=== PATIENT | female | born 1940 | race Caucasian/White ===

== ENCOUNTER 2016-09-11 09:36 | Emergency (ER) | payer MEDICARE ==
[2016-09-11 09:59] VITALS: BP 132/66
--- NOTE | 2016-09-11 10:10 | UC ---
Ear Complaint HPI - HPI Summary HPI Summary: left ear fullness x 2 day no ear pain , no change in hearing no cold symptoms - History of Current Complaint Chief Complaint: UCEar Stated Complaint: EAR FULLNESS Time Seen by Provider: 09/11/16 09:56 Hx Obtained From: Patient Onset/Duration: Gradual Onset, Lasting Days - 2, Still Present Severity Initially: Moderate Severity Currently: Moderate Aggravating Factors: Nothing Alleviating Factors: Nothing Associated Signs/Symptoms: Negative: Discharge, Hearing Loss, Foreign Body Sensation, Trauma to Ear, Swelling @, URI Symptoms - Allergies/Home Medications Allergies/Adverse Reactions: Allergies Allergy/AdvReac Type Severity Reaction Status Date / Time Penicillins Allergy Unknown Unknown Verified 09/11/16 09:59 Reaction Details Codeine AdvReac See Comment Verified 09/11/16 10:00 Home Medications: Home Medications Albuterol HFA INHALER* [Ventolin HFA Inhaler*] 2 puff INH Q4H 09/11/16 [History Confirmed 09/11/16] Aspirin TAB* [Aspirin 325 MG TAB*] 325 mg PO DAILY 09/11/16 [History Confirmed 09/11/16] Atorvastatin* [Lipitor*] 80 mg PO 1700 09/11/16 [History Confirmed 09/11/16] Budesonide CAP(NF) 3 mg PO TID 09/11/16 [History Confirmed 09/11/16] Diltiazem HCl [Diltiazem HCl ER] 240 mg PO 09/11/16 [History] Esomeprazole Magnesium [Nexium 24Hr] 20 mg PO 09/11/16 [History] Ezetimibe TAB* [Zetia TAB*] 09/11/16 [History] Fexofenadine HCl [Allergy 24-Hr] 180 mg PO 09/11/16 [History] Lactobacillus [Probiotic] 1 cap PO 09/11/16 [History] Levothyroxine TAB* [Synthroid TAB*] 75 mcg PO 0800 09/11/16 [History Confirmed 09/11/16] Losartan Potassium [Cozaar] 50 mg PO 09/11/16 [History] Multiple Vitamin [Multi Vitamin] 1 tab PO 09/11/16 [History Confirmed 09/11/16] Torsemide [Demadex 10 MG] 10 mg PO DAILY 09/11/16 [History Confirmed 09/11/16] PMH/Surg Hx/FS Hx/Imm Hx Cancer History: Lung Cancer - Surgical History Surgical History: Yes Surgery Procedure, Year, and Place: gallbladder, lower back, achillies tendon repair - Family History Known Family History: Positive: Hypertension - Social History Alcohol Use: Weekly Substance Use Type: None Smoking Status (MU): Former Smoker Length of Time of Smoking/Using Tobacco: "a long time" Have You Smoked in the Last Year: No When Did the Patient Quit Smoking/Using Tobacco: 1997 Review of Systems Constitutional: Negative Skin: Negative Eyes: Negative ENT: Ear Ache Respiratory: Negative All Other Systems Reviewed And Are Negative: Yes Physical Exam Triage Information Reviewed: Yes Appearance: Well-Appearing, No Pain Distress, Well-Nourished Vital Signs: Initial Vital Signs Temp 98 F 09/11/16 09:48 Pulse 81 09/11/16 09:48 Resp 16 09/11/16 09:48 BP 132/66 09/11/16 09:48 Pulse Ox 95 09/11/16 09:48 Vital Signs Reviewed: Yes Eye Exam: Normal Eyes: Positive: Conjunctiva Clear ENT: Positive: Normal ENT inspection, Hearing grossly normal, Pharynx normal, TMs normal. Negative: TM bulging, TM dull, TM red Neck: Positive: Supple, Nontender, No Lymphadenopathy Respiratory: Positive: Chest non-tender, Lungs clear, Normal breath sounds Cardiovascular: Positive: RRR, No Murmur, Pulses Normal Abdomen Description: Positive: Nontender Musculoskeletal Exam: Normal Neurological Exam: Normal Skin Exam: Normal Ear Complaint Course/Dx - Differential Dx/Diagnosis Provider Diagnoses: eustachian tube dysfunction Discharge - Discharge Plan Condition: Stable Disposition: HOME Prescriptions: Fluticasone NASAL * [Flonase *] 2 spray BOTH NARES DAILY #1 spray Patient Education Materials: Earache (ED) Referrals: Elvira Tee MD [Primary Care Provider] - If Needed Additional Instructions: eustachian tube dysfunction may use flonas 2 spray each nostril daily no infection seen
== END 2016-09-11 10:17 | disposition home or self-care (01) ==
LOC: UCCORT 09:36
DX: H69.92 Unspecified Eustachian tube disorder, left ear (principal); Z87.891 Personal history of nicotine dependence; Z88.0 Allergy status to penicillin; Z88.5 Allergy status to narcotic agent; Z79.82 Long term (current) use of aspirin
CPT/HCPCS: 99212; G0463